=== PATIENT | female | born 1955 | race Two or more races ===

== ENCOUNTER 2024-08-06 08:33 | Outpatient (RCR) | payer MEDICARE, SELFPAY ==
--- NOTE | 2024-07-28 15:08 | CTCCONSULT_ITS ---
[facility] [address] [place], [place] [address] Consultation Note Date: 07/28/2024 MR#: [id number] Name: AKBAR LAMB : 1955 Dx: C50.512 Malignant neoplasm left breast. Attending physician. Milo Cortés PA-C [facility] Reason for consultation. 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 History of Present Illness: Patient is a 69-year-old lady following stereotactic core biopsy of left breast 12:00 with calcification revealing ER/NJ positive at least DCIS suspicious for minimal invasio n 04/29/2024. On 06/15/2024 lumpectomy was performed revealing 6 mm DCIS grade 1 cribriform with nega tive margins and no evidence of invasive disease. Close margin was 3 mm inferior path classification was pTis pNX patient has been placed on anastrozole by her medical oncologist with [facility] in [place]. Radiation therapy was recommended which she preferred to get closer to home. Past Medical History: History of high blood pressure anemia chickenpox ear infections Meds. Levothyroxine metoprolol verapamil lisinopril finasteride 1 mg a day Social History: Patient is retired from [employer] denies drinking smoking; lives alone take s care of [employer] Review of Systems: Has had allergies headache heartburn recent back pain muscle pain Physical Exam: General: Well-appearing lady no acute distress HEENT: Atraumatic normocephalic extraocular is intact no oral lesion no cervical or supraclavicular a karan CV: Chest clear to auscultation heart regular rate and rhythm; surgical changes in left breast healin g well ABD: Soft no organomegaly tenderness EXT: No sinus clubbing or edema Assessment: Patient with DCIS left breast status postlumpectomy with clear margins. pTisNx. Receptor positive on anastrozole followed by medical oncologist Kathy Rahman Plan: Radiation therapy to the residual tissue left breast 4000 cGy in 15 fraction with the possibili ty of E boost was discussed the patient. Side effects explained. Thank you much allow me to evaluat e and manage this patient. Cc: Analilia Cortés PA-C [facility] Electronically signed by: Cruz Hyde MD, DABR 07/28/2024 3:06 PM
--- NOTE | 2024-07-28 15:09 | CTCTXPLN_ITS ---
[facility] [place] [address] [place], [place] [address] Physician Clinical Treatment Planning Note Date of Service: 07/28/2024 Name: AKBAR LAMB : 1955 The patient has agreed to proceed with Radiation therapy. Tests and supporting medical records were interpreted to assist in defining the tumor location and extent of disease. Further imaging will be necessary to contour and delineate the volume to which the XRT will be provided. A. Treatment Intent: Curative B. Modality: 15 MV C. Requested Technique: 3D D. Treatment Site: Left breast E. Critical structures to be contoured on plan: F. In order to accomplish this plan, I am ordering/Prescribing the followin. Simulations (s) will be performed to accomplish a reproducible treatment position, to determine op timal treatment portals/beam arrangements, to design beam modifying devices and verify treatment port als on patient prior to the commencement of Radiation Therapy. Left breast 2. Devices; for immobilization and beam shaping: Vac-Adalid 3. CT Guidance for placement of XRT barnett Scan area: 4. Portal images Frequency: 5. Invivo transit dose measurement once per week on all VMAT patients. 6. Special Physics Consult Requested for: 7. Other requests: G. Dose Objectives: Curative Electronically signed by: Cruz Hyde M.D. 07/28/2024 3:07 PM
--- NOTE | 2024-07-28 15:11 | CTCTXPLNST_ITS ---
Radiation Oncology Treatment Planning Sheet Name: AKBAR LAMB MR#: [id number] : 1955 Dx: C50.912 Malignant neoplasm of unspecified site of left female breast Date of Service: 07/28/2024 Account #: ?? Pt Treatment Intent: curative palliative other: Stage: Procedure CPT # Ordered Spec. Procedure 83331 Covarrubias Complex (set-up) 53765 Left breast scales/ E boost 1 Covarrubias Simple 54649 1 IMRT Plan 82975 MLC Devices VMAT 95540 Covarrubias 3 D 62869 1 TRTMT dev Complex 37227 Vaklok./2tang/e boost 5 TRTMT dev simple 24104 1 Basic Nathen 72948 5 Special Dosimetry 09953 Spec Physics 76830 Port Films 79808 3 SRS Cranial/1FX 98696 SBR 5 FX or Less /ex: 5 = 5 fx 67257 IMRT Simple 70857 IMRT Complex 22190 IGRT 34528 Rad del com 6-10 00446 Rad del com 11 10715 5005 20 Cont Med Physics 26011 3 Treatment Planning 65589 1 Rad del com 20 mev 68100 Rad del inter 6 24979 Rad del inter 05-26 57283 Rad del simple 6-10 71054 Rad del simple 05-26 77740 Special Port Plan 80467 TRTMT dev inter 27385 Isodose Complex 69777 Isodose simple 28316 Resp Motion Mgmt Simulation 77493 Placement of Fiducial Markers 41607 Electronically Signed By: Cruz Hyde MD, DABR 07/28/2024 3:09 PM
== END 2024-08-07 23:59 | disposition home or self-care (01) ==
LOC: SCTC 08:33
PROVIDERS: PCP Physician Assistant; Referring Provider Physician Assistant; Visit Provider Radiology Therapeutic Radiology
DX: D05.12 Intraductal carcinoma in situ of left breast (principal); Z17.0 Estrogen receptor positive status [ER+]; Z17.21 Progesterone receptor positive status; Z90.12 Acquired absence of left breast and nipple; Z79.811 Long term (current) use of aromatase inhibitors
CPT/HCPCS: 77014; 77290; 77334; 99213; G0463

== ENCOUNTER 2024-08-07 20:14 | Inpatient (IN) | payer MEDICARE, SELFPAY ==
[2024-08-07] VITALS (9 sets, daily range): BP systolic 70–162; BP diastolic 46–95; PULSE 61–82; RESP 16–19; TEMP 36.8–37.2; O2SAT 95–100; BMI 28.5
--- NOTE | 2024-08-07 20:29 | PD.EDGIBLD ---
ED GI Bleed RME/HPI General Chief complaint: GI Bleed Stated complaint: RECTAL BLEEDING Time Seen by Provider: 08/07/24 20:25 Source: patient and EMS Arrival date/time: 08/07/24 20:14 Mode of arrival: EMS Limitations: no limitations RME / HPI RME / HPI Narrative: Dr. Ayala?s Main ED Evaluation: A 69-year-old female with a history of left breast cancer (status post-lumpectomy on 06/15/24) and hypertension was brought to the emergency department by ambulance for evaluation of rectal bleeding. The patient states that she was in her usual state of health when she experienced abdominal rumbling while sitting. She then went to the restroom and observed a significant amount of blood clots in her stool. Concerned by the bleeding, she activated EMS for transport to the hospital. The patient denies any additional medical complaints or associated symptoms at this time. Medications include Levothyroxine, Metoprolol, Verapamil, Lisinopril, Finasteride. The patient recently had an oncology consultation with Dr. Hyde on 07/28/24. A review of the note indicates a plan for radiation therapy. Followed by Analilia Lopez at [facility]. Related Data Previous Rx's ?Medication ?Instructions ?Recorded ibuprofen 800 mg tablet 800 mg PO TID #30 tabs 08/13/17 Allergies Allergy/AdvReac Type Severity Reaction Status Date / Time morphine Allergy Severe Rash Verified 08/07/24 20:30 Review of Systems Review of Systems Systems Reviewed: All systems reviewed, normal except as documented Past Medical History Past Medical History CARDIAC: Negative Congestive Heart Failure RESPIRATORY: Negative Chronic Obstructive Pulmonary Disease (COPD) GENITOURINARY: Negative Renal Disease MUSCULOSKELETAL: Positive Musculoskeletal Disorders ENDOCRINE: Negative Diabetes Mellitus Type 1 or Diabetes Mellitus Type 2 Social History SMOKING STATUS: Never smoker ED Exam Narrative Physical exam: GENERAL APPEARANCE: alert and oriented x 4, well-developed, well-nourished, no acute distress VITALS: All vitals were reviewed and the pulse ox is 98% on room air, which is normal according to my interpretation. HEENT: Normocephalic, atraumatic; pupils equal, round, reactive to light; EOMI; mucous membranes pink, moist; oropharynx clear NECK: Supple LUNGS: CTABL; no wheezes, no rales, no rhonchi HEART: Regular rate, regular rhythm; normal S1, S2; no murmurs ABDOMEN: non distended; normal BS; soft, no tenderness, no guarding, no rebound; no masses, no organomegaly, no hernia BACK: no CVA tenderness EXTREMITIES: atraumatic; no edema NEUROLOGIC: awake; alert and oriented x4; cranial nerves II-XII grossly intact; no focal sensory or motor deficits PSYCHIATRIC: appropriate mood and affect SKIN: warm, dry, normal color; no rashes General Limitations: Present no limitations Course Course Course Narrative: 2327: Orthostatics were done. Patient's blood pressure went from 139/73 (lying) to 70/46 (standing), and patient complained of nausea and generalized weakness. Type and screen ordered. CXR is ordered for determining the etiology of weakness. Quality Measures none Orders Category Date Time Status Machine Records Units Supervisor STAT Care 08/07/24 21:23 Active Continuous Pulse Oximetry STAT Care 08/07/24 21:23 Active Insert IV STAT Care 08/07/24 21:23 Active NPO STAT Care 08/07/24 21:23 Active Orthostatic Vitals NOW Care 08/07/24 21:23 Active XR chest 1V portable Stat Exams 08/07/24 23:24 Completed CBC Stat Lab 08/07/24 21:32 Completed Comprehensive Metabolic Panel Stat Lab 08/07/24 21:32 Completed Free T4 (Free Thyroxine) Stat Lab 08/07/24 21:32 Completed Magnesium Stat Lab 08/07/24 21:32 Completed Partial Thromboplastin Time Stat Lab 08/07/24 21:32 Completed Prothrombin Time with INR Stat Lab 08/07/24 21:32 Completed Troponin I Stat Lab 08/07/24 21:32 Completed Type and Screen Stat Lab 08/07/24 21:32 Completed Pantoprazole Inj [Protonix Inj] Med 08/07/24 21:23 Discontinued 80 mg IVP X1 ONE Sodium Chloride 0.9% 1000 ml [Ns] 1,000 ml Med 08/07/24 21:23 Discontinued IV 999 mls/hr Sodium Chloride 0.9% 1000 ml [Ns] 1,000 ml Med 08/07/24 23:23 Discontinued IV 999 mls/hr Sodium Chloride 0.9% 1000 ml [Ns] 1,000 ml Med 08/07/24 23:23 Discontinued IV 999 mls/hr Reevaluation(s) Reevaluation #1: Patient states she feels better, but is still passing bloody stools. When standing up, patient did not become hypotensive or tachycardic. Will consult an admission to the hospitalist. Time: 00:43 Vital Signs Vital signs: Vital Signs Temperature 98.2 F 08/07/24 20:15 Pulse Rate 64 08/07/24 20:15 Respiratory Rate 16 08/07/24 20:15 Blood Pressure 162/90 H 08/07/24 20:15 Pulse Oximetry (%) 98 08/07/24 20:15 Oxygen Delivery Method Room Air 08/07/24 20:15 GI Bleed MDM Narrative MDM Narrative:: Scribe Attestation: Chaim Rivera, am scribing for and in the presence of Dr. Ayala. Provider Notation: Although this document has been carefully reviewed, there may still be some phonetic and other typographical errors. These errors are purely grammatical due to imperfections in the software program and should not be construed in any way to compromise the substance of the patient's medical care during this visit. Patient data External records reviewed:: [facility] previous records and EMS form Clinical information provided by:: patient and EMS Social determinants that could affect healthcare access:: none Patient has the following chronic illnesses:: See PMH How is presenting disease/condition affected by chronic disease/condition?: uneffected by Evaluation data The following diagnostics were reviewed and interpreted by me:: lab results and radiology exam(s) Lab and/or radiology exams considered but not ordered:: None Interpretation Summary: [facility] Report Signed Patient: AKBAR LAMB [facility]. Record#: [id number] Birthdate: 1955 Age/Sex: 69 / F Location: [facility] Attending Dr: Ordering Physician: Paul Ayala MD Date of Service: 08/07/24 Procedure(s): XR chest 1V portable Accession Number(s): [id number] cc: Jay Baumann MD; Paul Ayala MD; Milo Cortés PA-C~ Examination: AP chest single view FINDINGS: AP portable upright chest single view Presented time: August 07, 2024 11:28 PM INDICATIONS: Chronic coughing FINDINGS: Normal heart size No pneumonia or pulmonary edema Significant osteopenia IMPRESSION: No pneumonia or pulmonary edema Dictated By: Jay Baumann MD Signed By: <Electronically signed by Jay Baumann MD in OV> 08/07/24 7142 Medications / Prescriptions Medications or Prescriptions considered but not ordered:: None Medication administrations:: Medication Administration History Discontinued Medications Sodium Chloride (Ns) 1,000 mls @ 999 mls/hr IV .Q1H1M ONE Stop: 08/07/24 22:23 Last Infusion: 08/07/24 22:38 Dose: Infused Documented By: Admin: 08/07/24 21:48 Dose: 999 mls/hr Documented By: TC Sodium Chloride (Ns) 1,000 mls @ 999 mls/hr IV .Q1H1M ONE Stop: 08/08/24 00:23 Last Infusion: 08/08/24 00:48 Dose: Infused Documented By: Admin: 08/07/24 23:39 Dose: 999 mls/hr Documented By: EF Sodium Chloride (Ns) 1,000 mls @ 999 mls/hr IV .Q1H1M ONE Stop: 08/08/24 00:23 Last Infusion: 08/08/24 00:48 Dose: Infused Documented By: Admin: 08/07/24 23:39 Dose: 999 mls/hr Documented By: EF Pantoprazole Sodium (Pantoprazole Inj 40 Mg Vial) 80 mg IVP X1 ONE Stop: 08/07/24 21:24 Last Admin: 08/07/24 21:48 Dose: 80 mg Documented By: TC As above, if any Consultations Consultation(s) initiated? (list below): Yes Consultation #1 (Physician, Specialty, Details): Discussed case with [the resident physician, attending Dr. Ayala] from Hospitalist service regarding admission. Discussed patients ED course, exam findings, labs, and radiology results. The Hospitalist [agrees] to accept the patient for admission. Time: 00:51 Diagnosis GI bleed differential diagnosis: other (diverticulosis vs peptic ulcer disease, vs av malformation vs bacterial dysentery, colon cancer vs other) Most likely diagnosis given after review of the tests above:: See clinical impression Admission Indicated Admission indicated?: indicated Admission Request Was there a request for admission?: Yes Admission Attestation Admission request attestation: Discussed case with [] from Hospitalist service regarding admission. Discussed patients ED course, exam findings, labs, and radiology results. The Hospitalist [agrees,declines] to accept the patient for admission. Disposition Plan Disposition Plan: Admit Critical Care Time Critical Care Time Critical Care Time: Yes Total Critical Care Time (min.): 35 Attestation: The high probability of sudden, clinically significant deterioration in the patient?s condition required the highest level of my preparedness to intervene urgently. The services I provided to this patient were to treat and/or prevent clinically significant deterioration. Services included the following: chart data review, reviewing nursing notes and/or old charts, documentation time, client insights consultant collaboration regarding findings and treatment options, medication orders and management, direct patient care, vital sign assessments and ordering, interpreting and reviewing diagnostic studies and lab tests. Aggregate critical care time includes only time during which I was engaged in work directly related to the patient?s care, as described above, whether at bedside or elsewhere in the Emergency Department. It did not include time spent performing other reported procedures or the services of residents, students, nurses or physician assistants. Discharge Plan Plan Patient Disposition: Admit Acute Care w/in Hospital Prescriptions/Referrals Prescriptions/Med Rec: No Action ibuprofen 800 mg tablet 800 mg PO TID Qty: 30 0RF Referrals: Milo Cortés PA-C [Primary Care Provider] - In 1 week Problem List Clinical Impression: Hematochezia, Orthostatic hypotension Patient/Caregiver Discharge Instructions Print Language: Slovenian Stand Alone Forms: [facility]ia Award Info., Patient Portal Info Letter
[2024-08-07] MEDS: PANTOPRAZOLE INJ 40 MG VIAL 80 MG IVP (21:48)
[2024-08-07] MEDS: SODIUM CHLORIDE 0.9% 1000 ML 1,000 ML 999 ML IV ×3 (21:48→23:39)
[2024-08-07 21:49] LABS: Basophils % (Auto) 0 % (0-2.5); Eosinophils # (Auto) 0.3 Thou/mm3 (0.0-0.5); Eosinophils % (Auto) 3 % (0-10); Hematocrit 36.5 % (36.0-46.0); Hemoglobin 12.7 g/dL (12.0-16.0); Immature Granulocytes % (Auto) 0 % (0-0); Immature Granulocytes Auto 0.03 Thou/mm3 (0.00-0.00); Lymphocytes # (Auto) 2.9 Thou/mm3 (1.0-4.8); Lymphocytes % (Auto) 28 % (10-50); Mean Corpuscular HGB Conc 34.8 g/dl (31.0-37.0); Mean Corpuscular Hemoglobin 31.2 pg (25.0-35.0); Mean Corpuscular Volume 90 fL (80-100); Monocytes # (Auto) 0.6 Thou/mm3 (0.0-0.8); Monocytes % (Auto) 6 % (0-12); Neutrophils # (Auto) 6.6 Thou/mm3 (1.8-7.7); Neutrophils % (Auto) 63 % (37-80); Nucleated Red Blood Cell % 0 /100 WBC (0); Platelet Count 367 Thou/mm3 (140-440); RDW Standard Deviation 38.8 fL (36.4-46.3); Red Blood Count 4.07 Miln/mm3 (4.00-5.20); White Blood Count 10.5 Thou/mm3 (3.6-11.0)
[2024-08-07 21:56] LABS: INR 1.1 (0.9-1.3); Partial Thromboplastin Time 25.3 Seconds (22.0-36.0); Prothrombin Time 11.9 Seconds (9.0-12.2)
[2024-08-07 22:01] LABS: Alanine Aminotransferase 22 U/L (10-49); Albumin, Serum 3.9 gm/dL (3.4-4.8); Albumin/Globulin Ratio 1.8 (1.2-2.2); Alkaline Phosphatase 115 U/L (46-116); Anion Gap 9 (7-16); Aspartate Amino Transferase 26 U/L (0-34); BUN/Creatinine Ratio 17 Ratio (12-20); Bilirubin,Total 0.4 mg/dL (0.3-1.2); Blood Urea Nitrogen 12 mg/dL (9-23); Calcium 8.7 mg/dL (8.3-10.6); Calcium (Corrected) 8.8 mg/dL (8.5-10.1); Carbon Dioxide 25.4 mMol/L (20.0-31.0); Chloride 106 mMol/L (98-107); Creatinine (Component) 0.7 mg/dL (0.6-1.3); Estimated Creatinine Clearance 74.7 mL/min (>60); Free T4 (Free Thyroxine) 1.28 ng/dL (0.89-1.76); Globulin 2.2 gm/dL (2.3-3.5); Glucose 137 mg/dL (74-106); Osmolality,Calculated 281 (275-295); Potassium 4.4 mMol/L (3.4-5.1); Sodium 140 mMol/L (136-145); Total Protein 6.1 gm/dL (5.7-8.2); Troponin I < 0.020 ng/mL (0.0-0.045); eGFR > 60 See Note
--- NOTE | 2024-08-07 23:24 | XR_ITS ---
Examination: AP chest single view FINDINGS: AP portable upright chest single view Presented time: August 07, 2024 11:28 PM INDICATIONS: Chronic coughing FINDINGS: Normal heart size No pneumonia or pulmonary edema Significant osteopenia IMPRESSION: No pneumonia or pulmonary edema
[2024-08-08] VITALS (65 sets, daily range): BP systolic 69–166; BP diastolic 44–119; PULSE 54–93; RESP 4–26; TEMP 36.3–37.2; O2SAT 95–100
--- NOTE | 2024-08-08 04:03 | ESHP_ITS ---
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 Patient reported having 3 episodes of bloody diarrhea including blood clots. Patient denies any vaginal bleeding or hematuria. Associated symptoms include nausea, cramping and feeling bloated. However, patient denies any abdominal pain, chest pain, sweating, heart palpitations, weakness, fevers, vomiting. Patient states that she had a hamburger from [employer]. and beef taco and being burrito last week Saturday and Saturday but reported no abdominal pain, bloating, bloody diarrhea shortly after. Since then, patient has had her normal diet which consists of salads, soups, pizza, kimchi. Due to the pain from side effects of anastrozole, patient also noted that she took aspirin 325 mg x 2 for the last 4 days, last dose was yesterday. Of note, patient had her left lumpectomy on 06/15/2024 at [facility] and pathology was negative for any malignancy. Patient is scheduled to have radiation with Dr. Hyde this Saturday. Patient was also started on anastrozole 1 mg daily and follows . Can reach office at [phone]. Past medical history: As mentioned above Past surgical history: Hysterectomy, vaginal prolapse, trigger finger Meds: Patient takes metoprolol tartrate 100 mg twice daily and follows with Dr. Gonzalez cardiology in [place], verapamil 120 mg daily, lisinopril 20 mg as needed for elevated blood pressure, levothyroxine 100 mg ACB ER, anastrozole 1 mg started after her lumpectomy last month, and recent aspirin use of 325 mg 2 tablets for the last 4 days Family history: Positive for diabetes and heart disease in her parents Social history: Denies any smoking, alcohol, illicit drug use Allergies: Seasonal otherwise NKDA ED course: Patient presented with blood pressure 172/90, otherwise hemodynamically stable. Labs significant for low magnesium. Chest x-ray showed no pneumonia or pulmonary edema. Patient be admitted for further management of lower GI bleed. Review of Systems Review of Systems Systems Reviewed: All systems reviewed, normal except as documented Exam Vital Signs Temp Pulse Resp BP Pulse Ox O2 Del Method 98.9 F 59 L 17 91/53 L 98 Room Air 08/08/24 03:12 08/08/24 03:22 08/08/24 03:12 08/08/24 03:22 08/08/24 03:22 08/07/24 20:46 Narrative Exam General Appearance: Pt in mild acute distress laying comfortably in bed. HEENT: NC/AT, no scleral icterus, conjunctival pallor, MMM Lungs: CTAB, no wheezes or crackles appreciated CVS: RRR, S1/S2 heard, no murmurs or rubs appreciated ABD: Soft, non-tender, non-distended, BS + in all 4 quadrants EXT: no deformity/edema/lesions/cyanosis/clubbing, radial pulses 2+ BL, DP pulses 2 + BL SKIN: Skin exam normal without any rashes. Warm to touch. Neuro: A&O x 3. No gross neurological deficits. Motor and sensory grossly intact in B/L UL and LL. Psych: Appropriate mood and affect Results: Labs 08/08/24 19:58 08/08/24 03:54 Labs: Short CBC 08/07/24 Range/Units 21:32 WBC 10.5 (3.6-11.0) Thou/mm3 Hgb 12.7 (12.0-16.0) g/dL Hct 36.5 (36.0-46.0) % Plt Count 367 (140-440) Thou/mm3 BMP 08/07/24 21:32 Sodium 140 Potassium 4.4 Chloride 106 Carbon Dioxide 25.4 BUN 12 Creatinine 0.7 Glucose 137 H Calcium 8.7 Cardiac Enzymes 08/07/24 Range/Units 21:32 Troponin I < 0.020 (0.0-0.045) ng/mL Liver Function 08/07/24 Range/Units 21:32 Total Bilirubin 0.4 (0.3-1.2) mg/dL AST 26 (0-34) U/L ALT 22 (10-49) U/L Alkaline Phosphatase 115 (46-116) U/L Albumin 3.9 (3.4-4.8) gm/dL Quality Measures Quality Measures none Advance care planning discussed with:: patient Medications Home Medications and Allergies Home Medications ?Medication ?Instructions ?Recorded ?Confirmed ?Type anastrozole 1 mg tablet mg 02/01/25 History levothyroxine 100 mcg tablet mcg 08/08/24 History lisinopril 20 mg tablet mg 08/08/24 History metoprolol tartrate 100 mg tablet mg 08/08/24 History verapamil 120 mg 24 hr mg PO 08/08/24 History capsule,extended release Allergies Allergy/AdvReac Type Severity Reaction Status Date / Time morphine Allergy Severe Rash Verified 08/07/24 20:30 Visit Medications Acetaminophen (Acetaminophen 325 Mg Tablet) 650 mg PO Q6H PRN PRN Reason: Fever >100.3 or pain 1-3 Stop: 09/07/24 02:05 Levothyroxine Sodium (Levothyroxine Sodium 100 Mcg Tablet) 100 mcg PO ACBR RA Stop: 09/07/24 05:59 Metoclopramide HCl (Metoclopramide 5 Mg Tablet) 10 mg PO Q6H PRN PRN Reason: NAUSEA OR VOMITING Stop: 09/07/24 02:05 Pantoprazole Sodium (Pantoprazole Inj 40 Mg Vial) 40 mg IVP BID RA Stop: 09/07/24 08:59 Discontinued Medications Sodium Chloride (Ns) 1,000 mls @ 999 mls/hr IV .Q1H1M ONE Stop: 08/07/24 22:23 Last Infusion: 08/07/24 22:38 Dose: Infused Sodium Chloride (Ns) 1,000 mls @ 999 mls/hr IV .Q1H1M ONE Stop: 08/08/24 00:23 Last Infusion: 08/08/24 00:48 Dose: Infused Sodium Chloride (Ns) 1,000 mls @ 999 mls/hr IV .Q1H1M ONE Stop: 08/08/24 00:23 Last Infusion: 08/08/24 00:48 Dose: Infused Metoprolol Tartrate (Metoprolol Tartrate 25 Mg Tablet) 100 mg PO BID RA Stop: 09/07/24 08:59 Pantoprazole Sodium (Pantoprazole Inj 40 Mg Vial) 80 mg IVP X1 ONE Stop: 08/07/24 21:24 Last Admin: 08/07/24 21:48 Dose: 80 mg Verapamil HCl (Verapamil 120 Mg Tabcr) 120 mg PO HS [facility] Stop: 09/07/24 20:59 Assessment & Plan Plan Patient is a 69-year-old female with past medical history significant for 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 #Lower GI bleed Patient presented with hematochezia x 3 episodes at home and also had 3 episodes in the ED. Later in the ED course, patient's hemoglobin dropped from 12-7.4. Patient given a total of 2 units of O+ blood that was-screen to patient's blood type. Patient is currently on her third bag of blood unit. Patient also got another liter of LR to help with her hypotension. Gave low-dose IV Lasix 20 mg x 1 with the current third bag that is transfusing. -Admit to telemetry -Patient most likely will need GoLytely prep for colonoscopy -Consulted Dr. 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 Patient follows with . Can reach office at [phone]. -Patient takes home anastrozole however will hold for now due to patient's, ongoing GI bleed -Return to Dr. Magallon on further recommendations on when to restart medication #Cardiomyopathy #Hypertension Patient takes home verapamil and metoprolol scheduled and lisinopril as needed. -Will order echocardiogram -Hold home verapamil and lisinopril for now due to patient's soft blood pressure #Hypothyroidism Restarted patient's home levothyroxine 100 mg ACBR, however held a.m. dose due to current transfusion and patient feeling nauseous Health Maintenance: DVT prophylaxis: SCDs Diet: Clear liquid diet [place]: No Lines: PIV Supplemental O2: None CODE STATUS: Full code Disposition: Patient admitted to telemetry for further management lower GI bleed. Patient's plan and care discussed with my attending, Dr. Annita Dunbar MD PGY-2 Attending Provider Attestation/Addendum I attest that I was physically present for the evaluation, physical examination, lab and imaging review of the patient with the residents. I discussed the case with the residents and agree with the findings and plans of care as documented above. Patient is a 69 years old female with past medical history of left lumpectomy due to stage 0 cancer in her milk duct, cardiomyopathy, hypertension who presented to the ED with complaint of bleeding from rectum since this evening. Patient had 3 episodes of bloody diarrhea with bright red blood and blood clots. She also have some nausea, abdominal cramps and has been feeling bloated. She also took aspirin 325 mg x 2 for last 4 days as she was having side effects from anastrozole. Patient had her lumpectomy on June 15, 2024 and has been on anastrozole 1 mg daily. In the ED, patient had further episodes of bloody stool. Her initial blood pressure was 172/90 in the ED. Lab results and vital signs were stable. But while in the ED, she had an episode of acute low blood pressure reaching up to 87/51. With concern for multiple bowel movements with large quantities of blood, decision was made to transfuse with PRBCs. Patient also received fluid bolus in the ED. We will admit the patient for management of lower GI bleed, started on Protonix, clear liquid diet. GI has been consulted by ED. Francisco Ariza MD
[2024-08-08 04:19] LABS: Basophils % (Auto) 0 % (0-2.5); Eosinophils # (Auto) 0.2 Thou/mm3 (0.0-0.5); Eosinophils % (Auto) 2 % (0-10); Hematocrit 21.5 % (36.0-46.0); Immature Granulocytes % (Auto) 0 % (0-0); Immature Granulocytes Auto 0.02 Thou/mm3 (0.00-0.00); Lymphocytes # (Auto) 2.4 Thou/mm3 (1.0-4.8); Lymphocytes % (Auto) 31 % (10-50); Mean Corpuscular HGB Conc 34.4 g/dl (31.0-37.0); Mean Corpuscular Hemoglobin 31.6 pg (25.0-35.0); Mean Corpuscular Volume 92 fL (80-100); Monocytes # (Auto) 0.5 Thou/mm3 (0.0-0.8); Monocytes % (Auto) 6 % (0-12); Neutrophils # (Auto) 4.6 Thou/mm3 (1.8-7.7); Neutrophils % (Auto) 60 % (37-80); Nucleated Red Blood Cell % 0 /100 WBC (0); Platelet Count 226 Thou/mm3 (140-440); RDW Standard Deviation 41.1 fL (36.4-46.3); Red Blood Count 2.34 Miln/mm3 (4.00-5.20); White Blood Count 7.7 Thou/mm3 (3.6-11.0)
[2024-08-08 04:31] LABS: Alanine Aminotransferase 13 U/L (10-49); Albumin, Serum 2.6 gm/dL (3.4-4.8); Albumin/Globulin Ratio 1.7 (1.2-2.2); Alkaline Phosphatase 74 U/L (46-116); Anion Gap 7 (7-16); Aspartate Amino Transferase 11 U/L (0-34); BUN/Creatinine Ratio 17 Ratio (12-20); Bilirubin,Total 0.3 mg/dL (0.3-1.2); Blood Urea Nitrogen 10 mg/dL (9-23); Calcium 7.1 mg/dL (8.3-10.6); Calcium (Corrected) 8.2 mg/dL (8.5-10.1); Carbon Dioxide 20.3 mMol/L (20.0-31.0); Chloride 116 mMol/L (98-107); Creatinine (Component) 0.6 mg/dL (0.6-1.3); Estimated Creatinine Clearance 87.1 mL/min (>60); Globulin 1.5 gm/dL (2.3-3.5); Glucose 127 mg/dL (74-106); Magnesium 1.7 mg/dL (1.6-2.6); Osmolality,Calculated 285 (275-295); Potassium 4.1 mMol/L (3.4-5.1); Sodium 143 mMol/L (136-145); Total Protein 4.1 gm/dL (5.7-8.2); eGFR > 60 See Note
[2024-08-08 04:42] LABS: Hemoglobin 7.4 g/dL (12.0-16.0)
[2024-08-08] MEDS: FUROSEMIDE INJ 10 MG/ML VIAL 2 ML 20 MG IVP (04:56)
[2024-08-08] MEDS: PANTOPRAZOLE INJ 40 MG VIAL IVP ×2 (10:41→20:21)
[2024-08-08 12:44] LABS: Hemoglobin 12.9 g/dL (12.0-16.0)
--- NOTE | 2024-08-08 15:21 | ESPR_ITS ---
Documentation for date of: 08/08/24 Subjective Subjective Interval history: Patient doing well status post 3 units of PRBC. Denies any complaint. Is having some abdominal distention. Exam Vital Signs Temp Pulse Resp BP Pulse Ox O2 Del Method 97.4 F 81 20 148/85 H 97 Room Air 08/08/24 12:00 08/08/24 12:00 08/08/24 12:00 08/08/24 12:00 08/08/24 12:00 08/08/24 12:00 Narrative Exam Constitutional: Well nourished and in no acute distress Head: Normocephalic/Atraumatic Eyes: no conjunctival injection , symmetrical lids. ENMT: Moist Mucous Membranes CVS: RRR, S1 and S2 present RESP: Clear to auscultation bilaterally, no increased work of breathing, no rales, rhonchi or wheezing GI: Soft, nondistended, mildly tender in the left lower quadrant, no peritoneal signs or rebound tenderness, patient not guarding Skin: Warm to touch, Dry. Neuro: Alert and oriented, moves all limbs spontaneously Psych: Appropriate mood and affect. Objective Labs 08/11/24 09:10 08/11/24 09:10 Labs: Laboratory Results - last 24 hr 08/07/24 08/08/24 08/08/24 21:32 03:54 03:54 WBC 10.5 7.7 RBC 4.07 2.34 L Hgb 12.7 7.4 L D Cancelled Hct 36.5 21.5 L* D MCV 90 MCH 31.2 MCHC 34.8 RDW Std Deviation 38.8 Plt Count 367 Neut % (Auto) 63 Lymph % (Auto) 28 [place] % (Auto) 6 Eos % (Auto) 3 Baso % (Auto) 0 Neut # (Auto) 6.6 Lymph # (Auto) 2.9 [place] # (Auto) 0.6 Eos # (Auto) 0.3 Baso # (Auto) 0.0 Immature Gran # (Auto) 0.03 H Absolute Nucleated RBC 0.00 Immature Gran % 0 Nucleated RBC % 0 PT 11.9 INR 1.1 APTT 25.3 Sodium 140 Potassium 4.4 Chloride 106 Carbon Dioxide 25.4 Anion Gap 9 BUN 12 Creatinine 0.7 Estim Creat Clear Calc 74.7 eGFR > 60 BUN/Creatinine Ratio 17 Glucose 137 H Calculated Osmolality 281 Calcium 8.7 Corrected Calcium 8.8 Magnesium 2.0 Total Bilirubin 0.4 AST 26 ALT 22 Alkaline Phosphatase 115 Troponin I < 0.020 Total Protein 6.1 Albumin 3.9 Globulin 2.2 L Albumin/Globulin Ratio 1.8 Free T4 1.28 Blood Type O Positive Antibody Screen NEGATIVE Crossmatch See Detail Blood Bank Wristband ID Yes 08/08/24 08/08/24 03:54 12:17 WBC RBC Hgb 12.9 D Hct Cancelled 37.0 D MCV 92 MCH 31.6 MCHC 34.4 RDW Std Deviation 41.1 Plt Count 226 D Neut % (Auto) 60 Lymph % (Auto) 31 [place] % (Auto) 6 Eos % (Auto) 2 Baso % (Auto) 0 Neut # (Auto) 4.6 Lymph # (Auto) 2.4 [place] # (Auto) 0.5 Eos # (Auto) 0.2 Baso # (Auto) 0.0 Immature Gran # (Auto) 0.02 H Absolute Nucleated RBC 0.00 Immature Gran % 0 Nucleated RBC % 0 PT INR APTT Sodium 143 Potassium 4.1 Chloride 116 H Carbon Dioxide 20.3 Anion Gap 7 BUN 10 Creatinine 0.6 Estim Creat Clear Calc 87.1 eGFR > 60 BUN/Creatinine Ratio 17 Glucose 127 H Calculated Osmolality 285 Calcium 7.1 L D Corrected Calcium 8.2 L Magnesium 1.7 Total Bilirubin 0.3 AST 11 ALT 13 Alkaline Phosphatase 74 D Troponin I Total Protein 4.1 L Albumin 2.6 L D Globulin 1.5 L Albumin/Globulin Ratio 1.7 Free T4 Blood Type Antibody Screen Crossmatch Blood Bank Wristband ID Quality Measures Quality Measures none Advance care planning discussed with:: other Assessment & Plan Assessment Current Active Medications: Generic Name Dose Route Start Last Admin Trade Name Freq PRN Reason Stop Dose Admin Acetaminophen 650 mg 08/08/24 02:06 Acetaminophen 325 Mg Tablet PO 09/07/24 02:05 Q6H PRN Fever >100.3 or pain 1-3 Levothyroxine Sodium 100 mcg 08/08/24 06:00 08/08/24 05:48 Levothyroxine Sodium 100 Mcg Tablet PO 09/07/24 05:59 Not Given ACBR RA Metoclopramide HCl 10 mg 08/08/24 02:06 Metoclopramide 5 Mg Tablet PO 09/07/24 02:05 Q6H PRN NAUSEA OR VOMITING Pantoprazole Sodium 40 mg 08/08/24 09:00 08/08/24 10:41 Pantoprazole Inj 40 Mg Vial IVP 09/07/24 08:59 40 mg BID RA Administration Plan Patient is a 69-year-old female with past medical history significant for 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 #Lower GI bleed Patient presented with hematochezia x 3 episodes at home and also had 3 episodes in the ED. In the ED, patient's hemoglobin dropped from 12-7.4. Patient s/p 3 units PRBC. HB now 12. Unknown findings or date of last colonoscopy. Plan: -Dr. 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 Patient follows with . Can reach office at [phone]. -Patient takes home anastrozole however will hold for now due to patient's, ongoing GI bleed -Return to Dr. Magallon on further recommendations on when to restart medication #Cardiomyopathy #Hypertension Patient takes home verapamil and metoprolol scheduled and lisinopril as needed. -Echocardiogram pending -Hold home verapamil and lisinopril for now due to patient's soft blood pressure #Hypothyroidism Restarted patient's home levothyroxine 100 mg ACBR, however held a.m. dose due to current transfusion and patient feeling nauseous Health Maintenance: DVT prophylaxis: SCDs Diet: Clear liquid diet [place]: No Lines: PIV Supplemental O2: None CODE STATUS: Full code Disposition: Patient admitted to telemetry for further management lower GI bleed. Patient's plan and care discussed with my attending, Dr. Jesus, Reji Arellano DO, PGY1 Attending Provider Attestation/Addendum I have examined the patient, reviewed labs and imaging findings, discussed the case with the resident(s), and reviewed entered orders. I agree with the plan of care as outlined in this note, with these additional summaries/recommendations: Patient seen and examined at bedside on telemetry overflow. No additional bloody bowel movements this morning. Patient reports persistent left lower quadrant pain, source of bleed likely diverticular. Vital signs stable at this time. Currently pending GI consultation for colonoscopy and CT angiography to isolate bleed. Continue with IV fluids at this time. Jordy Jesus MD
--- NOTE | 2024-08-08 15:41 | XR_ITS ---
Examination: CTA abdomen, with intravenous contrast. CTA pelvis, with intravenous contrast. 2-D sagittal and coronal reconstructions. 3-D reconstructions. Date and time of exam: August 08, 2024 at 1611 hrs. Indications: Vomiting blood, gastrointestinal bleeding today CTDI vol (mgy) 13.1 DLP (MGycm) 541 Technique: Multiple CTA images, 2.0 mm slice thickness, obtained abdomen, pelvis, with the high-resolution 64 slice scanner. 370 is administered intravenously. Sagittal and coronal 2-D reconstructions are obtained. 3-D reconstructions, angiographic images are obtained. 3-D postprocessing, including vascular maximum intensity projections. Low dose protocols were performed. One or more of the following dose reduction techniques were used; automated exposure control, adjustment of the mA and/or KV according to patient size, use of iterative reconstruction technique. Findings: Diffuse fatty infiltration throughout the liver, liver is mildly irregular in contour Gastric mucosa is prominently and diffusely thickened Spleen is not enlarged No gallstones No pancreatic or adrenal mass No hydronephrosis Aorta normal size Normal appendix Colonic diverticulosis Acute diverticulitis distal descending colon axial image 140 through 164 extending into the sigmoid colon Minimal thickening the rectal wall Contracted urinary bladder Absent uterus Advanced degenerative disc disease L5-S1 The 3-D images demonstrate increased vascularity and vascular blush in distribution of the cecum Impression: Gastritis pattern Mild acute diverticulitis distal descending colon sigmoid colon 3-D arterial images demonstrate increased vascularity and vascular blush consistent with cecal bleeding
--- NOTE | 2024-08-08 15:43 | PD.IMCONS ---
HPI Data of Consult Requesting Physician: Francisco Ariza MD Primary Care Provider: Milo Cortés PA-C Consult Narrative Reason for consult: Hematochezia History of present illness: 69 years old female being evaluated at request of the internal medicine team for multiple episodes of hematochezia She passed some blood clots and also bright red blood with some dark blood but not black Last week she took 2 aspirins a day for about 4 days because she was not feeling good She is not taking any blood thinners She has a history of left breast lumpectomy 08/05/2023 and starting her radiation therapy this coming Saturday and currently taking anastrozole cc:: cc: Francisco Ariza MD Review of Systems Review of Systems Systems Reviewed: All systems reviewed, normal except as documented Past Medical History Surgical History OTHER SURGICAL HX: Left breast lumpectomy on anastrozole Essential hypertension Hypothyroidism Meds Home Medications and Allergies Home Medications ?Medication ?Instructions ?Recorded ?Confirmed ?Type anastrozole 1 mg tablet mg 08/08/24 History levothyroxine 100 mcg tablet mcg 08/08/24 History lisinopril 20 mg tablet mg 08/08/24 History metoprolol tartrate 100 mg tablet mg 08/08/24 History verapamil 120 mg 24 hr mg PO 08/08/24 History capsule,extended release Allergies Allergy/AdvReac Type Severity Reaction Status Date / Time morphine Allergy Severe Rash Verified 08/07/24 20:30 Exam Vital Signs Temp Pulse Resp BP Pulse Ox O2 Del Method 97.4 F 81 20 148/85 H 97 Room Air 08/08/24 12:00 08/08/24 12:00 08/08/24 12:00 08/08/24 12:00 08/08/24 12:00 08/08/24 12:00 Constitutional Comments: Alert oriented Routine Respiratory Exam Comments: Normal to auscultation Routine Abdominal Exam Comments: Soft nontender positive bowel sounds Results Labs 08/08/24 12:17 08/08/24 03:54 Labs: Short CBC 08/07/24 08/08/24 08/08/24 Range/Units 21:32 03:54 03:54 WBC 10.5 7.7 (3.6-11.0) Thou/mm3 Hgb 12.7 7.4 L D Cancelled (12.0-16.0) g/dL Hct 36.5 21.5 L* D (36.0-46.0) % Plt Count 367 (140-440) Thou/mm3 08/08/24 08/08/24 Range/Units 03:54 12:17 WBC (3.6-11.0) Thou/mm3 Hgb 12.9 D (12.0-16.0) g/dL Hct Cancelled 37.0 D (36.0-46.0) % Plt Count 226 D (140-440) Thou/mm3 BMP 08/07/24 08/08/24 21:32 03:54 Sodium 140 143 Potassium 4.4 4.1 Chloride 106 116 H Carbon Dioxide 25.4 20.3 BUN 12 10 Creatinine 0.7 0.6 Glucose 137 H 127 H Calcium 8.7 7.1 L D Cardiac Enzymes 08/07/24 Range/Units 21:32 Troponin I < 0.020 (0.0-0.045) ng/mL Liver Function 08/07/24 08/08/24 Range/Units 21:32 03:54 Total Bilirubin 0.4 0.3 (0.3-1.2) mg/dL AST 26 11 (0-34) U/L ALT 22 13 (10-49) U/L Alkaline Phosphatase 115 74 D (46-116) U/L Albumin 3.9 2.6 L D (3.4-4.8) gm/dL Assessment and Plan Additional Assessment & Plan Additional Plan: # Hematochezia # Acute posthemorrhagic anemia plan Serial CBC every 6 CTA abdomen and pelvis RBC nuclear medicine scan is not available at the moment After the CAT scan GoLytely prep Once patient is somewhat clear we will schedule upper endoscopy and colonoscopy tentatively scheduled for tomorrow Other medical problems include # Essential hypertension # Left breast carcinoma postlumpectomy starting her radiation next week # Hypothyroidism Thank you very much for the opportunity to participate in the care of this patient
[2024-08-08] MEDS: NA SU/NAHCO3/KC/PEG (Golytely) 4,000 ML BTL 4000 ML PO (16:37)
[2024-08-08 18:23] LABS: Basophils % (Auto) 0 % (0-2.5); Eosinophils # (Auto) 0.2 Thou/mm3 (0.0-0.5); Eosinophils % (Auto) 2 % (0-10); Hematocrit 38.3 % (36.0-46.0); Hemoglobin 13.2 g/dL (12.0-16.0); Immature Granulocytes % (Auto) 0 % (0-0); Immature Granulocytes Auto 0.03 Thou/mm3 (0.00-0.00); Lymphocytes # (Auto) 3.6 Thou/mm3 (1.0-4.8); Lymphocytes % (Auto) 32 % (10-50); Mean Corpuscular HGB Conc 34.5 g/dl (31.0-37.0); Mean Corpuscular Hemoglobin 29.9 pg (25.0-35.0); Mean Corpuscular Volume 87 fL (80-100); Monocytes # (Auto) 0.6 Thou/mm3 (0.0-0.8); Monocytes % (Auto) 5 % (0-12); Neutrophils # (Auto) 6.8 Thou/mm3 (1.8-7.7); Neutrophils % (Auto) 60 % (37-80); Nucleated Red Blood Cell % 0 /100 WBC (0); Platelet Count 253 Thou/mm3 (140-440); RDW Standard Deviation 43.8 fL (36.4-46.3); Red Blood Count 4.41 Miln/mm3 (4.00-5.20); White Blood Count 11.3 Thou/mm3 (3.6-11.0)
[2024-08-08 20:04] LABS: Hematocrit 36.4 % (36.0-46.0); Hemoglobin 12.6 g/dL (12.0-16.0)
[2024-08-09] VITALS (73 sets, daily range): BP systolic 149–186; BP diastolic 68–114; PULSE 63–90; RESP 9–26; TEMP 36.2–37.1; O2SAT 84–100
[2024-08-09] MEDS: LEVOTHYROXINE SODIUM 100 MCG TABLET PO (05:53)
[2024-08-09 06:01] LABS: Basophils % (Auto) 1 % (0-2.5); Eosinophils # (Auto) 0.3 Thou/mm3 (0.0-0.5); Eosinophils % (Auto) 4 % (0-10); Hematocrit 34.5 % (36.0-46.0); Hemoglobin 11.9 g/dL (12.0-16.0); Immature Granulocytes % (Auto) 0 % (0-0); Immature Granulocytes Auto 0.01 Thou/mm3 (0.00-0.00); Lymphocytes % (Auto) 37 % (10-50); Mean Corpuscular HGB Conc 34.5 g/dl (31.0-37.0); Mean Corpuscular Hemoglobin 30.4 pg (25.0-35.0); Mean Corpuscular Volume 88 fL (80-100); Monocytes # (Auto) 0.6 Thou/mm3 (0.0-0.8); Monocytes % (Auto) 7 % (0-12); Neutrophils # (Auto) 4.1 Thou/mm3 (1.8-7.7); Neutrophils % (Auto) 51 % (37-80); Nucleated Red Blood Cell % 0 /100 WBC (0); Platelet Count 242 Thou/mm3 (140-440); RDW Standard Deviation 44.4 fL (36.4-46.3); Red Blood Count 3.92 Miln/mm3 (4.00-5.20)
[2024-08-09 06:29] LABS: Alanine Aminotransferase 14 U/L (10-49); Albumin, Serum 3.4 gm/dL (3.4-4.8); Albumin/Globulin Ratio 1.7 (1.2-2.2); Alkaline Phosphatase 94 U/L (46-116); Anion Gap 11 (7-16); Aspartate Amino Transferase 11 U/L (0-34); BUN/Creatinine Ratio 15 Ratio (12-20); Bilirubin,Total 0.7 mg/dL (0.3-1.2); Blood Urea Nitrogen 9 mg/dL (9-23); Calcium 8.4 mg/dL (8.3-10.6); Calcium (Corrected) 8.9 mg/dL (8.5-10.1); Carbon Dioxide 24.3 mMol/L (20.0-31.0); Chloride 107 mMol/L (98-107); Creatinine (Component) 0.6 mg/dL (0.6-1.3); Estimated Creatinine Clearance 87.1 mL/min (>60); Glucose 96 mg/dL (74-106); Osmolality,Calculated 281 (275-295); Potassium 3.3 mMol/L (3.4-5.1); Sodium 142 mMol/L (136-145); Total Protein 5.4 gm/dL (5.7-8.2); eGFR > 60 See Note
[2024-08-09] MEDS: PANTOPRAZOLE INJ 40 MG VIAL IVP ×2 (08:29→20:06)
[2024-08-09 13:59] LABS: Hematocrit 32.6 % (36.0-46.0); Hemoglobin 11.6 g/dL (12.0-16.0)
--- NOTE | 2024-08-09 15:39 | ESPR_ITS ---
Documentation for date of: 08/09/24 Subjective Subjective Interval history: Patient seen and examined at bedside. No acute events overnight. Patient's hemoglobin and hematocrit has remained stable since receiving the units of PRBC. 11.6, 32 respectively. At bedside patient was standing and had just used the toilet. Was able to appreciate a large amount of blood in toilet. Per nursing patient has had 3?4 episodes of this since morning. She is denying any abdominal pain, weakness. Dr. Leyva most likely to do endoscopy and colonoscopy this evening. Electrolytes within normal limits except potassium 3.3 which was repleted. Exam Vital Signs Temp Pulse Resp BP Pulse Ox O2 Del Method 98.2 F 89 16 162/85 H 99 Room Air 08/09/24 12:08/09/24 12:08/09/24 12:08/09/24 12:08/09/24 12:08/09/24 12:02 Narrative Exam Constitutional: Well nourished, well-developed middle-aged female, and in no acute distress Head: Normocephalic/Atraumatic Eyes: no conjunctival injection , symmetrical lids. ENMT: Moist Mucous Membranes CVS: RRR, S1 and S2 present RESP: Clear to auscultation bilaterally, no increased work of breathing GI: Soft, nondistended, no tenderness Skin: Warm to touch, Dry, scar left breast status postlumpectomy Neuro: Alert and oriented, moves all limbs spontaneously Psych: Appropriate mood and affect. Objective Labs 08/09/24 13:45 08/09/24 04:32 Labs: Laboratory Results - last 24 hr 08/08/24 08/08/24 08/09/24 18:05 19:58 04:32 WBC 11.3 H D 8.0 RBC 4.41 3.92 L Hgb 13.2 12.6 11.9 L Hct 38.3 36.4 34.5 L MCV 87 88 MCH 29.9 30.4 MCHC 34.5 34.5 RDW Std Deviation 43.8 44.4 Plt Count 253 242 Neut % (Auto) 60 51 Lymph % (Auto) 32 37 [place] % (Auto) 5 7 Eos % (Auto) 2 4 Baso % (Auto) 0 1 Neut # (Auto) 6.8 4.1 Lymph # (Auto) 3.6 3.0 [place] # (Auto) 0.6 0.6 Eos # (Auto) 0.2 0.3 Baso # (Auto) 0.0 0.0 Immature Gran # (Auto) 0.03 H 0.01 H Absolute Nucleated RBC 0.00 0.00 Immature Gran % 0 0 Nucleated RBC % 0 0 Sodium 142 Potassium 3.3 L D Chloride 107 Carbon Dioxide 24.3 Anion Gap 11 BUN 9 Creatinine 0.6 Estim Creat Clear Calc 87.1 eGFR > 60 BUN/Creatinine Ratio 15 Glucose 96 Calculated Osmolality 281 Calcium 8.4 Corrected Calcium 8.9 Total Bilirubin 0.7 AST 11 ALT 14 Alkaline Phosphatase 94 D Total Protein 5.4 L Albumin 3.4 D Globulin 2.0 L Albumin/Globulin Ratio 1.7 08/09/24 13:45 WBC RBC Hgb 11.6 L Hct 32.6 L MCV MCH MCHC RDW Std Deviation Plt Count Neut % (Auto) Lymph % (Auto) [place] % (Auto) Eos % (Auto) Baso % (Auto) Neut # (Auto) Lymph # (Auto) [place] # (Auto) Eos # (Auto) Baso # (Auto) Immature Gran # (Auto) Absolute Nucleated RBC Immature Gran % Nucleated RBC % Sodium Potassium Chloride Carbon Dioxide Anion Gap BUN Creatinine Estim Creat Clear Calc eGFR BUN/Creatinine Ratio Glucose Calculated Osmolality Calcium Corrected Calcium Total Bilirubin AST ALT Alkaline Phosphatase Total Protein Albumin Globulin Albumin/Globulin Ratio Quality Measures Quality Measures none Advance care planning discussed with:: patient Assessment & Plan Assessment Current Active Medications: Generic Name Dose Route Start Last Admin Trade Name Freq PRN Reason Stop Dose Admin Acetaminophen 650 mg 08/08/24 02:06 Acetaminophen 325 Mg Tablet PO 09/07/24 02:05 Q6H PRN Fever >100.3 or pain 1-3 Diphenhydramine HCl 25 mg 08/09/24 15:29 Diphenhydramine Inj 50 Mg/Ml Vial IV 08/09/24 17:29 [id number] PRN MODERATE SEDATION Fentanyl Citrate 50 mcg 08/09/24 15:29 Fentanyl Cit Inj 50 Mcg/Ml Amp 2ml IV 08/09/24 17:29 Q2M PRN MODERATE SEDATION Sodium Chloride 100 mls @ 100 mls/hr 08/09/24 15:29 Ns IV 08/09/24 16:28 X1 ONE Levothyroxine Sodium 100 mcg 08/08/24 06:00 08/09/24 05:53 Levothyroxine Sodium 100 Mcg Tablet PO 09/07/24 05:59 100 mcg ACBR RA Administration Meperidine HCl 25 mg 08/09/24 15:29 Meperidine Inj 50 Mg/Ml Vial IV 08/09/24 17:29 Q2M PRN MODERATE SEDATION Metoclopramide HCl 10 mg 08/08/24 02:06 Metoclopramide 5 Mg Tablet PO 09/07/24 02:05 Q6H PRN NAUSEA OR VOMITING Midazolam HCl 2 mg 08/09/24 15:29 Midazolam Inj 1 Mg/Ml Vial 2 Ml IV 08/09/24 17:29 Q2M PRN Moderate Sedation Pantoprazole Sodium 40 mg 08/08/24 09:00 08/09/24 08:29 Pantoprazole Inj 40 Mg Vial IVP 09/07/24 08:59 40 mg BID RA Administration Plan Patient is a 69-year-old female with past medical history significant for 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 #Lower GI bleed Patient presented with hematochezia x 3 episodes at home and also had 3 episodes in the ED. In the ED, patient's hemoglobin dropped from 12-7.4. Patient s/p 3 units PRBC. HB now 12. Unknown findings or date of last colonoscopy. CT A/P showed: Diverticulosis, descending colon diverticulitis, findings consistent of cecal bleeding Plan: -Dr. 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 Patient follows with . Can reach office at [phone]. -Patient takes home anastrozole however will hold for now due to patient's, ongoing GI bleed -Return to Dr. Magallon on further recommendations on when to restart medication #Cardiomyopathy #Hypertension Patient takes home verapamil and metoprolol scheduled and lisinopril as needed. -Echocardiogram pending -Hold home verapamil and lisinopril for now due to patient's soft blood pressure #Hypothyroidism Restarted patient's home levothyroxine 100 mg ACBR, however held a.m. dose due to current transfusion and patient feeling nauseous Health Maintenance: DVT prophylaxis: SCDs Diet: Clear liquid diet [place]: No Lines: PIV Supplemental O2: None CODE STATUS: Full code Disposition: Patient admitted to telemetry for further management lower GI bleed. Patient's plan and care discussed with my attending, Dr. Jesus. Karyna Monsivais, PGY1 Attending Provider Attestation/Addendum I have examined the patient, reviewed labs and imaging findings, discussed the case with the resident(s), and reviewed entered orders. I agree with the plan of care as outlined in this note, with these additional summaries/recommendations: 9-year-old female history of breast cancer currently on anastrozole presented with approximately 1 month of constipation since undergoing left lumpectomy and blood in stool x 3 episodes. While in the ER, patient had an additional 3 episodes and hemoglobin dropped down to 7 from 12 on admission with dizziness, lightheadedness, tachycardia, given 3 units PRBCs and fluids with improvement. Patient doing well today currently attempting to complete GoLytely in preparation for colonoscopy which was done later today. She still having some bloody BMs with GoLytely but otherwise appears stable. Vital signs within normal limits and no symptoms of anemia at this time. Patient will undergo both endoscopy and colonoscopy and attempt to localize and treat GI bleed. Jordy Jesus MD
--- NOTE | 2024-08-09 16:30 | SUR.PHASEI ---
report called to elida in icu. pt vss. breathing even and unlabored on room air. denies pain and nausea. ambulated self from gurney to bed. tolerated po ice chips.
[2024-08-09] MEDS: METOPROLOL TARTRATE 25 MG TABLET 100 MG PO (17:26)
[2024-08-09] MEDS: Lisinopril 20 MG TABLET PO (17:27)
[2024-08-09] MEDS: VERAPAMIL 120 MG PO (18:08)
[2024-08-09] MEDS: POTASSIUM CHLORIDE 20 mEq TABCR 40 MEQ PO (18:08)
--- NOTE | 2024-08-09 20:48 | PC.NURSE ---
Assumed care of patient presented self as primary nurse. Pt alert GCS 15. Respirations even and unlabored 0sob. No c/o pain or discomfort. Call light with in reach safety reviwed with patient.
[2024-08-10] VITALS (14 sets, daily range): BP systolic 117–181; BP diastolic 67–96; PULSE 65–88; RESP 18–24; TEMP 36.3–36.7; O2SAT 94–99
[2024-08-10] MEDS: LEVOTHYROXINE SODIUM 100 MCG TABLET PO (05:07)
[2024-08-10 06:15] LABS: Basophils % (Auto) 1 % (0-2.5); Eosinophils # (Auto) 0.3 Thou/mm3 (0.0-0.5); Eosinophils % (Auto) 5 % (0-10); Hematocrit 33.9 % (36.0-46.0); Hemoglobin 11.4 g/dL (12.0-16.0); Immature Granulocytes % (Auto) 0 % (0-0); Immature Granulocytes Auto 0.01 Thou/mm3 (0.00-0.00); Lymphocytes # (Auto) 2.4 Thou/mm3 (1.0-4.8); Lymphocytes % (Auto) 35 % (10-50); Mean Corpuscular HGB Conc 33.6 g/dl (31.0-37.0); Mean Corpuscular Hemoglobin 29.9 pg (25.0-35.0); Mean Corpuscular Volume 89 fL (80-100); Monocytes # (Auto) 0.5 Thou/mm3 (0.0-0.8); Monocytes % (Auto) 7 % (0-12); Neutrophils # (Auto) 3.7 Thou/mm3 (1.8-7.7); Neutrophils % (Auto) 53 % (37-80); Nucleated Red Blood Cell % 0 /100 WBC (0); Platelet Count 235 Thou/mm3 (140-440); RDW Standard Deviation 44.8 fL (36.4-46.3); Red Blood Count 3.81 Miln/mm3 (4.00-5.20); White Blood Count 6.9 Thou/mm3 (3.6-11.0)
[2024-08-10 06:51] LABS: Alanine Aminotransferase 12 U/L (10-49); Albumin, Serum 3.6 gm/dL (3.4-4.8); Albumin/Globulin Ratio 1.8 (1.2-2.2); Alkaline Phosphatase 93 U/L (46-116); Anion Gap 8 (7-16); Aspartate Amino Transferase 21 U/L (0-34); BUN/Creatinine Ratio 8 Ratio (12-20); Bilirubin,Total 0.7 mg/dL (0.3-1.2); Blood Urea Nitrogen < 5 mg/dL (9-23); Calcium 8.9 mg/dL (8.3-10.6); Calcium (Corrected) 9.2 mg/dL (8.5-10.1); Carbon Dioxide 25.1 mMol/L (20.0-31.0); Chloride 110 mMol/L (98-107); Creatinine (Component) 0.6 mg/dL (0.6-1.3); Glucose 86 mg/dL (74-106); Osmolality,Calculated 281 (275-295); Potassium 3.9 mMol/L (3.4-5.1); Sodium 143 mMol/L (136-145); Total Protein 5.6 gm/dL (5.7-8.2); eGFR > 60 See Note
[2024-08-10] MEDS: METOPROLOL TARTRATE 25 MG TABLET 100 MG PO ×2 (08:35→20:17)
[2024-08-10] MEDS: PANTOPRAZOLE INJ 40 MG VIAL IVP ×2 (08:36→20:18)
--- NOTE | 2024-08-10 09:43 | PC.SS ---
Patient Rebekah is a 69 Year old female admitted for Hematochezia. SS met with patient at bedside. Patient reports she lives at home alone. She reports that her daughter, Jada Keyes is her surrogate decision maker [phone]. Patient reports she does not utilize any source of DME to assist with ambulation. Pharmacy of choice is [facility] in [place]. Patient is able to complete ADL's independently. Patients PCP is Milo Cortés. Patient also sees DR. Hyde as her oncologist. and a surgeon in [facility].at time of discharge patient will return home. Family will provide transportation. Discharge plan: Home Next of Kin: daughter, Jennifer Keyes [phone]
--- NOTE | 2024-08-10 09:58 | PC.SS ---
Patient Estrella Keyes is a 69 Year old female admitted for Hematochezia. SS met with patient at bedside. Patient reports she lives at home alone. She reports that her daughter, Jada Keyes is her surrogate decision maker [phone]. Patient reports she does not utilize any source of DME to assist with ambulation. Pharmacy of choice is [facility] in [place]. Patient is able to complete ADL's independently. Patients PCP is Milo Cortés. Patient also sees DR. Hyde as her oncologist. and a surgeon in [facility].at time of discharge patient will return home. Family will provide transportation. Discharge plan: Home Next of Kin: daughter, Jennifer Keyes [phone]
--- NOTE | 2024-08-10 10:50 | ESPR_ITS ---
Documentation for date of: 08/10/24 Exam Vital Signs Temp Pulse Resp BP Pulse Ox O2 Del Method O2 Flow Rate 97.4 F 70 14 139/85 H 98 Room Air 3 08/10/24 07:32 08/10/24 08:35 08/09/24 20:00 08/10/24 08:35 08/10/24 07:32 08/10/24 07:32 08/09/24 16:07 Objective Labs 08/10/24 04:44 08/10/24 04:44 Labs: Laboratory Results - last 24 hr 08/09/24 08/10/24 13:45 04:44 WBC 6.9 RBC 3.81 L Hgb 11.6 L 11.4 L Hct 32.6 L 33.9 L MCV 89 MCH 29.9 MCHC 33.6 RDW Std Deviation 44.8 Plt Count 235 Neut % (Auto) 53 Lymph % (Auto) 35 [place] % (Auto) 7 Eos % (Auto) 5 Baso % (Auto) 1 Neut # (Auto) 3.7 Lymph # (Auto) 2.4 [place] # (Auto) 0.5 Eos # (Auto) 0.3 Baso # (Auto) 0.0 Immature Gran # (Auto) 0.01 H Absolute Nucleated RBC 0.00 Immature Gran % 0 Nucleated RBC % 0 Sodium 143 Potassium 3.9 D Chloride 110 H Carbon Dioxide 25.1 Anion Gap 8 BUN < 5 L Creatinine 0.6 Estim Creat Clear Calc 90.0 eGFR > 60 BUN/Creatinine Ratio 8 L Glucose 86 Calculated Osmolality 281 Calcium 8.9 Corrected Calcium 9.2 Total Bilirubin 0.7 AST 21 ALT 12 Alkaline Phosphatase 93 Total Protein 5.6 L Albumin 3.6 Globulin 2.0 L Albumin/Globulin Ratio 1.8 Assessment & Plan A&P Narrative # Hematochezia # Acute posthemorrhagic anemia plan Serial CBC every 6 CTA abdomen and pelvis RBC nuclear medicine scan is not available at the moment After the CAT scan GoLytely prep Once patient is somewhat clear we will schedule upper endoscopy and colonoscopy tentatively scheduled for tomorrow Other medical problems include # Essential hypertension # Left breast carcinoma postlumpectomy starting her radiation next week # Hypothyroidism Thank you very much for the opportunity to participate in the care of this patient Time Spent With Patient Time: Total time spent is greater than 50% in coordination of care (as documented) at patient's floor/unit and/or counseling patient:
--- NOTE | 2024-08-10 16:57 | ESPR_ITS ---
<Statement entered by Catherine Palomino MD - 08/10/24 17:59> I discussed with and supervised my co-resident involved in the care of this patient. I agree with the assessment and plan as documented above. Patient seen this morning. Patient expressed frustration regarding food due to being NPO for procedure. Had EGD last night and plan for colonoscopy today. Hemoglobin is stable. Plan for colonoscopy tonight. Will follow up with GI for reports. Catherine Palomino MD PGY-3 Documentation for date of: 08/10/24 Subjective Subjective Interval history: Patient is NPO. Status post colonoscopy yesterday. Awaiting colonoscopy results. Patient is pending EGD later tonight. This morning patient was upset as she was previously told her EGD would be in the morning and was moved to the afternoon. We told her she can be on a clear liquid diet up until noon. She denies current rectal bleeding. Hemoglobin has remained stable. Exam Vital Signs Temp Pulse Resp BP Pulse Ox O2 Del Method O2 Flow Rate 97.4 F 73 14 139/85 H 98 Room Air 3 08/10/24 07:32 08/10/24 16:00 08/09/24 20:00 08/10/24 08:35 08/10/24 07:32 08/10/24 07:32 08/09/24 16:07 Narrative Exam Constitutional: Well nourished and in no acute distress Head: Normocephalic/Atraumatic Eyes: no conjunctival injection , symmetrical lids. ENMT: Moist Mucous Membranes CVS: Regular rate RESP: no increased work of breathing Skin: Warm to touch, Dry. Neuro: Alert and oriented, moves all limbs spontaneously Psych: Appropriate mood and affect. Objective Labs 08/11/24 09:10 08/11/24 09:10 Labs: Laboratory Results - last 24 hr 08/10/24 04:44 WBC 6.9 RBC 3.81 L Hgb 11.4 L Hct 33.9 L MCV 89 MCH 29.9 MCHC 33.6 RDW Std Deviation 44.8 Plt Count 235 Neut % (Auto) 53 Lymph % (Auto) 35 [place] % (Auto) 7 Eos % (Auto) 5 Baso % (Auto) 1 Neut # (Auto) 3.7 Lymph # (Auto) 2.4 [place] # (Auto) 0.5 Eos # (Auto) 0.3 Baso # (Auto) 0.0 Immature Gran # (Auto) 0.01 H Absolute Nucleated RBC 0.00 Immature Gran % 0 Nucleated RBC % 0 Sodium 143 Potassium 3.9 D Chloride 110 H Carbon Dioxide 25.1 Anion Gap 8 BUN < 5 L Creatinine 0.6 Estim Creat Clear Calc 90.0 eGFR > 60 BUN/Creatinine Ratio 8 L Glucose 86 Calculated Osmolality 281 Calcium 8.9 Corrected Calcium 9.2 Total Bilirubin 0.7 AST 21 ALT 12 Alkaline Phosphatase 93 Total Protein 5.6 L Albumin 3.6 Globulin 2.0 L Albumin/Globulin Ratio 1.8 Quality Measures Quality Measures none Advance care planning discussed with:: patient and other Assessment & Plan Assessment Current Active Medications: Generic Name Dose Route Start Last Admin Trade Name Freq PRN Reason Stop Dose Admin Acetaminophen 650 mg 08/08/24 02:06 Acetaminophen 325 Mg Tablet PO 09/07/24 02:05 Q6H PRN Fever >100.3 or pain 1-3 Levothyroxine Sodium 100 mcg 08/08/24 06:00 08/10/24 05:07 Levothyroxine Sodium 100 Mcg Tablet PO 09/07/24 05:59 100 mcg ACBR RA Administration Lisinopril 20 mg 08/09/24 17:00 08/10/24 08:24 Lisinopril 20 Mg Tablet PO 09/08/24 16:59 Not Given DAILY RA Metoclopramide HCl 10 mg 08/08/24 02:06 Metoclopramide 5 Mg Tablet PO 09/07/24 02:05 Q6H PRN NAUSEA OR VOMITING Metoprolol Tartrate 100 mg 08/09/24 17:00 08/10/24 08:35 Metoprolol Tartrate 25 Mg Tablet PO 09/08/24 16:59 100 mg Q12HR RA Administration Pantoprazole Sodium 40 mg 08/08/24 09:00 08/10/24 08:36 Pantoprazole Inj 40 Mg Vial IVP 09/07/24 08:59 40 mg BID RA Administration Verapamil HCl 120 mg 08/09/24 17:45 08/10/24 08:34 Verapamil 120 Mg Tabcr PO 09/08/24 17:44 Not Given QDAY RA Plan Patient is a 69-year-old female with past medical history significant for 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 #Lower GI bleed Patient presented with hematochezia x 3 episodes at home and also had 3 episodes in the ED. In the ED, patient's hemoglobin dropped from 12-7.4. Patient s/p 3 units PRBC. HB now 12. Unknown findings or date of last colonoscopy. CT A/P showed: Diverticulosis, descending colon diverticulitis, findings consistent of cecal bleeding Status post colonoscopy yesterday. Awaiting results. Plan: -Dr. 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 Patient follows with . Can reach office at [phone]. -Patient takes home anastrozole however will hold for now due to patient's, ongoing GI bleed -Return to Dr. Magallon on further recommendations on when to restart medication #Cardiomyopathy #Hypertension -Resumed home verapamil and lisinopril ?Echo pending #Hypothyroidism ?Resume home levothyroxine Health Maintenance: DVT prophylaxis: SCDs Diet: Clear liquid diet [place]: No Lines: PIV Supplemental O2: None CODE STATUS: Full code Disposition: Patient admitted to telemetry for further management lower GI bleed. Patient's plan and care discussed with my attending, Dr. Nora Arellano DO, PGY1 Attending Provider Attestation/Addendum Face to face evaluation was performed by me. I have personally seen and examined the patient. I discussed the assessment and plan with the entire medicine team. I reviewed available medical records, imaging studies, laboratory results. I agree with the above subjective data, objective findings, assessment and plan except as corrected by me or noted below Lower GI bleed, diverticular bleed Symptomatic anemia acute blood loss Pt complains of being NPO and states she is thirsty mainly and having headache due to lack of her AM coffee GI contacted ot can eat and npo after, EGD later evening
[2024-08-11] VITALS (7 sets, daily range): BP systolic 110–144; BP diastolic 63–93; PULSE 55–70; RESP 11–18; TEMP 36.4–36.8; O2SAT 96–98; BMI 29.3
[2024-08-11] MEDS: LEVOTHYROXINE SODIUM 100 MCG TABLET PO (05:12)
[2024-08-11] MEDS: METOPROLOL TARTRATE 25 MG TABLET 100 MG PO (08:25)
[2024-08-11] MEDS: VERAPAMIL 120 MG PO (08:26)
[2024-08-11] MEDS: PANTOPRAZOLE INJ 40 MG VIAL IVP (08:29)
[2024-08-11 09:41] LABS: Basophils % (Auto) 1 % (0-2.5); Eosinophils # (Auto) 0.3 Thou/mm3 (0.0-0.5); Eosinophils % (Auto) 4 % (0-10); Hematocrit 34.2 % (36.0-46.0); Hemoglobin 11.6 g/dL (12.0-16.0); Immature Granulocytes % (Auto) 0 % (0-0); Immature Granulocytes Auto 0.03 Thou/mm3 (0.00-0.00); Lymphocytes # (Auto) 2.2 Thou/mm3 (1.0-4.8); Lymphocytes % (Auto) 30 % (10-50); Mean Corpuscular HGB Conc 33.9 g/dl (31.0-37.0); Mean Corpuscular Hemoglobin 30.3 pg (25.0-35.0); Mean Corpuscular Volume 89 fL (80-100); Monocytes # (Auto) 0.4 Thou/mm3 (0.0-0.8); Monocytes % (Auto) 6 % (0-12); Neutrophils # (Auto) 4.5 Thou/mm3 (1.8-7.7); Neutrophils % (Auto) 60 % (37-80); Nucleated Red Blood Cell % 0 /100 WBC (0); Platelet Count 266 Thou/mm3 (140-440); Red Blood Count 3.83 Miln/mm3 (4.00-5.20); White Blood Count 7.5 Thou/mm3 (3.6-11.0)
[2024-08-11 09:58] LABS: Alanine Aminotransferase 15 U/L (10-49); Albumin, Serum 3.8 gm/dL (3.4-4.8); Albumin/Globulin Ratio 1.8 (1.2-2.2); Alkaline Phosphatase 95 U/L (46-116); Anion Gap 7 (7-16); Aspartate Amino Transferase 19 U/L (0-34); BUN/Creatinine Ratio 14 Ratio (12-20); Bilirubin,Total 0.6 mg/dL (0.3-1.2); Blood Urea Nitrogen 10 mg/dL (9-23); Calcium 9.1 mg/dL (8.3-10.6); Calcium (Corrected) 9.3 mg/dL (8.5-10.1); Carbon Dioxide 28.9 mMol/L (20.0-31.0); Chloride 104 mMol/L (98-107); Creatinine (Component) 0.7 mg/dL (0.6-1.3); Estimated Creatinine Clearance 75.7 mL/min (>60); Globulin 2.1 gm/dL (2.3-3.5); Glucose 121 mg/dL (74-106); Osmolality,Calculated 279 (275-295); Sodium 140 mMol/L (136-145); Total Protein 5.9 gm/dL (5.7-8.2); eGFR > 60 See Note
--- NOTE | 2024-08-11 15:46 | PD.RESDS ---
Planned Discharge Date 08/11/24 DS: Providers Provider Date of admission: 08/08/24 02:06 Primary care physician: Milo Cortés PA-C Admitting Provider: Francisco Ariza MD Attending Provider on Admission: Stan Melendez MD Consults: 08/08/24 06:35 Consult to Gastroenterology Stat Comment: rectal bleeding Consulting Provider: Belia Leyva Attending Provider on DC: Stan Melendez MD Discharging Provider: Reji Arellano DO DS: Diagnosis Problem List Completed Was Problem List Reviewed/Reconciled?: Yes Hospital Course Hospital Course Hospital course: Discharge summary: Patient is a 69-year-old female with past medical history significant for 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 Patient presented with hematochezia x 3 episodes at home and also had 3 episodes in the ED. Later in the ED course, patient's hemoglobin dropped from 12-7.4. She was given 3 units of PRBCs. Started on IV Protonix 40 mg twice daily. Prep for colonoscopy using GoLytely. Continued to have bloody bowel movements during her admission. EGD shows esophagitis with no bleeding. Gastritis characterized by erosions. Colonoscopy showed bleeding is most likely the diverticular source of bleeding and there was blood throughout the colon but no blood seen in the terminal ileum. Recommended peptic ulcer disease diet and Protonix. At the time of discharge patient's hemoglobin had remained stable for the last few days. Patient was discharged on the recommended medications and will follow-up with PCP and Dr. Leyva outpatient. Discharge instructions: Follow-up with your PCP in 1 week Follow-up with GI Dr. Leyva in 1 week. Please take prescribed meds. Follow-up with your oncologist about continuation of anastrozole. Please follow a peptic ulcer disease diet. 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 Melendez, Reji Arellano DO, PGY1 Time Spent with Patient Time attestation: Total time spent providing and/or coordinating discharge services: Exam Vital Signs Temp Pulse Resp BP Pulse Ox O2 Del Method O2 Flow Rate 97.8 F 60 18 129/79 96 Room Air 3 08/11/24 11:25 08/11/24 11:25 08/11/24 11:25 08/11/24 11:25 08/11/24 11:25 08/11/24 11:08/10/24 18:40 Narrative Exam Constitutional: Well nourished and in no acute distress Head: Normocephalic/Atraumatic Eyes: no conjunctival injection , symmetrical lids. ENMT: Moist Mucous Membranes CVS: Regular rate RESP: no increased work of breathing Abdomen: Soft, nondistended, nontender Skin: Warm to touch, Dry. Neuro: Alert and oriented, moves all limbs spontaneously Psych: Appropriate mood and affect. Discharge Plan Plan Patient Disposition: HOME (Self Care) Disposition Comment: Tele Care Plan Goals: Follow-up with your PCP in 1 week Follow-up with GI Dr. Leyva in 1 week. Please take prescribed meds. Follow-up with your oncologist about continuation of anastrozole. Please follow a peptic ulcer disease diet. Prescriptions/Referrals Prescriptions/Med Rec: New pantoprazole 40 mg tablet,delayed release (DR/EC) 40 mg PO BID Qty: 60 0RF Continued anastrozole 1 mg tablet 1 mg PO DAILY Patient Comments: TAKE 1 TABLET BY MOUTH EVERY DAY metoprolol tartrate 100 mg tablet 100 mg PO Q12H Patient Comments: TAKE 1 TABLET BY MOUTH TWICE A DAY WITH FOOD FOR 90 DAYS verapamil 120 mg capsule,ext rel. pellets 24 hr 120 mg PO DAILY lisinopril 20 mg tablet 20 mg PO DAILY Patient Comments: TAKE 1 TABLET BY MOUTH EVERY DAY Rx Instructions: per patient, takes if needed levothyroxine 100 mcg tablet 100 mcg PO DAILY Patient Comments: TAKE 1 TABLET BY MOUTH EVERY DAY IN THE MORNING ON AN EMPTY STOMACH FOR 30 DAYS Discontinued ibuprofen 800 mg tablet 800 mg PO TID Qty: 30 0RF Referrals: Milo Cortés PA-C [Primary Care Provider] - Patient/Caregiver Discharge Instructions Discharge Activity: activity as tolerated and resume usual activities Other Discharge Activity Instructions:: Follow-up with your PCP in 1 week Follow-up with JATINDER Leyva in 1 week. Please take prescribed meds. Follow-up with your oncologist about continuation of anastrozole. Please follow a peptic ulcer disease diet. Education Materials: Peptic Ulcer, Colonoscopy, Upper GI Endoscopy, Diverticulosis Diverticulitis, Discharge Instructions for ..., Discharge Instructions- Eating ... Print Language: Cook Islander Stand Alone Forms: [facility]ia Award Info., Patient Portal Info Letter Discharge Order Discharge Orders: Discharge (Routine); Ordered 08/11/24 Ordered By: Catherine Palomino Quality Discharge Quality Measures VTE prophylaxis Attestestation Attestation Face to face evaluation was performed by me. I have personally seen and examined the patient. I discussed the assessment and plan with the entire medicine team. I reviewed available medical records, imaging studies, laboratory results. I agree with the above subjective data, objective findings, assessment and plan except as corrected by me or noted below Lower GI bleed, diverticular bleed Symptomatic anemia acute blood loss Esophagitis Gastric erosions - received PRBS transfusions, Hb stable GI on board Dr Leyva- discussed with Dr Leyva-- pt had EGD and colonoscopy - plan to dc on ppi bid, fu wit hPCP and maybe GI as well stop NSAIDs PUD diet
== END 2024-08-11 12:44 | disposition home or self-care (01) | DRG 378 ==
LOC: SERX 08-08 00:56 → SERHOLD 08-08 02:28 → S2SX 08-09 15:27 → S3NX 08-10 06:34
PROVIDERS: Specialist; Student in an Organized Health Care Education/Training Program; Admitting Provider Student in an Organized Health Care Education/Training Program; Emergency Provider Emergency Medicine; PCP Physician Assistant; Visit Provider Internal Medicine
PROC: 0DJD8ZZ Inspection of Lower Intestinal Tract, Via Natural or Artificial Opening Endoscopic (ICD-10-PCS; CPT 45378; principal; 2024-08-09 15:00)
PROC: 0DJ08ZZ Inspection of Upper Intestinal Tract, Via Natural or Artificial Opening Endoscopic (ICD-10-PCS; CPT 43239; principal; 2024-08-10 15:00)
DX: K57.33 Diverticulitis of large intestine without perforation or abscess with bleeding (principal); D62 Acute posthemorrhagic anemia; I42.9 Cardiomyopathy, unspecified; C50.912 Malignant neoplasm of unspecified site of left female breast; K20.90 Esophagitis, unspecified without bleeding; K29.70 Gastritis, unspecified, without bleeding; E03.9 Hypothyroidism, unspecified; I10 Essential (primary) hypertension; K64.8 Other hemorrhoids; Z88.5 Allergy status to narcotic agent; Z79.811 Long term (current) use of aromatase inhibitors; Z79.899 Other long term (current) drug therapy; Z90.710 Acquired absence of both cervix and uterus
CPT/HCPCS: 36415; 36430; 71045; 74174; 80053; 83735; 84439; 84484; 85014; 85018; 85025; 85610; 85730; 86850; 86900; 86901; 86920; 86923; 93225; 96361; 96374; 99291; A4649; J1200; J1940; J2250; J2470; J3010; J7030; P9016; Q9967; A9270

== ENCOUNTER 2024-09-02 07:48 | Outpatient (RCR) | payer MEDICARE, SELFPAY ==
--- NOTE | 2024-08-11 23:11 | PD.IMPROG ---
Documentation for date of: 08/11/24 Subjective Subjective Interval history: late entry for the note Case discussed with the internal medicine team patient can be discharged home She has a diverticular source of bleeding She does not need a capsule endoscopy She can be followed by the primary care physician Objective Impressions Impression: # Diverticular bleed stable hemoglobin hematocrit Okay to discharge patient home Assessment & Plan Time Spent With Patient Time: Total time spent is greater than 50% in coordination of care (as documented) at patient's floor/unit and/or counseling patient:
--- NOTE | 2024-08-12 10:32 | CTCSNOTE_ITS ---
[facility] [address] [place], [place] [address] Simple Simulation Note Date: 08/12/2024 MR#: [id number] Name: AKBAR LAMB : 1955 Port was taken and the field size location and blocks were checked. (A) The port was noted to be in ideal position along with its blocks. Electronically signed by: Cruz Hyde MD, JACOB 08/12/2024 10:29 AM
== END 2024-09-04 23:59 | disposition home or self-care (01) ==
LOC: SCTC 07:48
PROVIDERS: PCP Family Medicine; Referring Provider Family Medicine; Visit Provider Radiology Therapeutic Radiology
DX: Z51.0 Encounter for antineoplastic radiation therapy (principal); D05.12 Intraductal carcinoma in situ of left breast; Z17.0 Estrogen receptor positive status [ER+]; Z17.21 Progesterone receptor positive status; Z90.12 Acquired absence of left breast and nipple; Z79.811 Long term (current) use of aromatase inhibitors
CPT/HCPCS: 77280; 77290; 77295; 77300; 77332; 77334; 77336; 77412; 77417

== ENCOUNTER 2024-09-24 07:48 | Outpatient (RCR) | payer MEDICARE, SELFPAY ==
--- NOTE | 2024-09-07 09:42 | CTCTRTNOTE_ITS ---
[facility] [address] [place], [place] [address] Weekly Management Date: 09/07/2024 ?? Name: AKBAR ADONIS Stahl.: 1955 A. Patient is currently at 200 cGy. E boost completed photons last week. B. Patient is tolerating treatment well. C. Resume radiation therapy. Completes XRT this week. Electronically signed by: Cruz Hyde M.D. 09/07/2024 9:40 AM
== END 2024-10-05 23:59 | disposition home or self-care (01) ==
LOC: SCTC 07:48
PROVIDERS: PCP Family Medicine; Referring Provider Family Medicine; Visit Provider Radiology Therapeutic Radiology
DX: Z51.0 Encounter for antineoplastic radiation therapy (principal); C50.912 Malignant neoplasm of unspecified site of left female breast; Z17.0 Estrogen receptor positive status [ER+]; Z17.21 Progesterone receptor positive status; Z90.12 Acquired absence of left breast and nipple; Z79.811 Long term (current) use of aromatase inhibitors
CPT/HCPCS: 77336; 77412; 99212; G0463

== ENCOUNTER 2025-03-25 07:49 | Outpatient (RCR) | payer MEDICARE, SELFPAY ==
--- NOTE | 2025-03-25 08:30 | CTCFLWUP_ITS ---
[facility] [address] [place], [place] [address] FOLLOW-UP NOTE Date: 03/25/2025 MR#: [id number] Name: AKBAR LAMB : 1955 Dx: C50.912 Malignant neoplasm of unspecified site of left female breast Identification. 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 Was prescribed anastrozole by [facility] doctor in [place]. Did not like it and discontinued after short period As I see her left breast appears cosmetically satisfactory with just post radiation surgical changes Patient states that she will have her primary care provider get mammograms annually and be referred back as needed. I told her for any abnormal mammogram or any suspicious masses palpable that she could always come back. Cc: Milo Cortés PA-C [facility] Electronically signed by: Cruz Hyde M.D. 03/25/2025 8:27 AM
== END 2025-04-06 23:59 | disposition home or self-care (01) ==
LOC: SCTC 07:49
PROVIDERS: PCP Family Medicine; Referring Provider Family Medicine; Visit Provider Radiology Therapeutic Radiology
DX: D05.12 Intraductal carcinoma in situ of left breast (principal); Z79.811 Long term (current) use of aromatase inhibitors; Z92.3 Personal history of irradiation; Z90.12 Acquired absence of left breast and nipple
CPT/HCPCS: 99212; G0463

== ENCOUNTER → 2025-05-05 | Outpatient (CLI) | payer MEDICARE, SELFPAY ==
--- NOTE | 2025-05-05 12:40 | XR_ITS ---
Examination: Bone densitometry Date and time of exam: May 05, 2025, 1246 hours INDICATIONS: Hysterectomy age 37 postmenopausal foot fracture 2010, family history mother hip fracture levothyroxine 38 years vitamin D 1 month Technique: Lumbar spine and hip total bone mineralization values of an calculated. Peak reference and age match control results have been displayed. Findings: Lumbar spine total bone mineralization is 0.937 gm/cm2. This is 1.0 standard deviations below peak reference. This is 1.0 standard deviations above age-matched controls. Hip total bone mineralization is 0.855 gm/cm2 This is , 0.8 standard deviations below peak reference. This is 0.5 standard deviations above age-matched controls Impression: There is normal mineralization based on lumbar spine measurements. There is osteopenia based on hip measurements Lumbar mineralization is decreased 4.4% compared with October 18, 2022 Hip mineralization decreased 2.7% compared with October 18, 2022
== END | disposition home or self-care (01) ==
LOC: CDIM 12:13
PROVIDERS: Referring Provider Physician Assistant; Visit Provider Physician Assistant
DX: M85.89 Other specified disorders of bone density and structure, multiple sites (principal)
CPT/HCPCS: 77080